=== PATIENT | female | born 1935 | race Caucasian/White ===

== ENCOUNTER 2023-05-01 09:36 | Outpatient (REF) | payer MEDICARE, SELFPAY ==
[2023-05-01 12:59] LABS: Prothrombin Time 22.3 sec (9.0-11.6)
== END 2023-05-01 09:37 ==
LOC: LAB 09:36
PROVIDERS: PCP Family Medicine; Visit Provider Family Medicine
DX: Z79.01 Long term (current) use of anticoagulants (principal)
CPT/HCPCS: 36415; 85610

== ENCOUNTER 2023-05-04 12:28 | Outpatient (REF) | payer MEDICARE, SELFPAY ==
[2023-05-04 13:34] LABS: INR 2.59
== END 2023-05-04 12:29 ==
LOC: LAB 12:28
PROVIDERS: PCP Family Medicine; Visit Provider Family Medicine
DX: Z79.01 Long term (current) use of anticoagulants (principal)
CPT/HCPCS: 36415; 85610

== ENCOUNTER 2023-05-08 00:58 | Outpatient (REF) | payer MEDICARE, SELFPAY ==
[2023-05-08 09:35] LABS: Partial Thromboplastin Time 35.6 sec (22.3-36.2)
[2023-05-08 15:54] LABS: INR 2.25; Prothrombin Time 22.8 sec (9.0-11.6)
== END 2023-05-08 00:59 ==
LOC: LAB 00:58
PROVIDERS: PCP Family Medicine; Visit Provider Family Medicine
DX: Z79.01 Long term (current) use of anticoagulants (principal)
CPT/HCPCS: 36415; 85610; 85730

== ENCOUNTER 2023-05-11 00:52 | Outpatient (REF) | payer MEDICARE, SELFPAY ==
[2023-05-11 10:25] LABS: INR 3.09; Prothrombin Time 30.7 sec (9.0-11.6)
== END 2023-05-11 00:53 ==
LOC: LAB 00:52
PROVIDERS: PCP Family Medicine; Visit Provider Family Medicine
DX: Z79.01 Long term (current) use of anticoagulants (principal)
CPT/HCPCS: 36415; 85610

== ENCOUNTER 2023-05-15 07:33 | Outpatient (REF) | payer MEDICARE, SELFPAY ==
[2023-05-15 09:00] LABS: INR 3.32; Prothrombin Time 32.9 sec (9.0-11.6)
== END 2023-05-15 07:34 ==
LOC: LAB 07:33
PROVIDERS: PCP Family Medicine; Visit Provider Family Medicine
DX: Z79.01 Long term (current) use of anticoagulants (principal)
CPT/HCPCS: 36415; 85610

== ENCOUNTER 2023-05-18 01:22 | Outpatient (REF) | payer MEDICARE, SELFPAY ==
[2023-05-18 08:01] LABS: INR 2.22; Prothrombin Time 22.5 sec (9.0-11.6)
== END 2023-05-18 01:23 ==
LOC: LAB 01:22
PROVIDERS: PCP Family Medicine; Visit Provider Family Medicine
DX: Z79.01 Long term (current) use of anticoagulants (principal)
CPT/HCPCS: 36415; 85610

== ENCOUNTER 2023-05-22 05:12 | Outpatient (REF) | payer MEDICARE, SELFPAY ==
[2023-05-22 10:25] LABS: INR 2.38
== END 2023-05-22 05:13 | disposition home or self-care (01) ==
LOC: LAB 05:12
PROVIDERS: PCP Family Medicine; Visit Provider Family Medicine
DX: Z79.01 Long term (current) use of anticoagulants (principal)
CPT/HCPCS: 36415; 85610

== ENCOUNTER 2023-05-25 02:32 | Outpatient (REF) | payer MEDICARE, SELFPAY ==
[2023-05-25 10:27] LABS: INR 2.43; Prothrombin Time 24.5 sec (9.0-11.6)
== END 2023-05-25 02:33 | disposition home or self-care (01) ==
LOC: LAB 02:32
PROVIDERS: PCP Family Medicine; Visit Provider Family Medicine
DX: Z79.01 Long term (current) use of anticoagulants (principal)
CPT/HCPCS: 36415; 85610

== ENCOUNTER 2023-05-27 03:11 | Outpatient (REF) | payer MEDICARE, SELFPAY ==
[2023-05-27 07:54] LABS: Anion Gap 13.1; BUN Creatinine Ratio 46.3; Calcium 9.1 mg/dL (8.5-10.1); Carbon Dioxide 28.2 mmol/L (21.0-32.0); Chloride 98 mmol/L (98-107); Estimated GFR (African America 58 (>=60); Estimated GFR (Non-African Ame 48 (>=60); Glucose 116 mg/dL (74-106); Potassium 4.3 mmol/L (3.5-5.1); Sodium 135 mmol/L (136-145)
== END 2023-05-27 03:12 | disposition home or self-care (01) ==
LOC: LAB 03:11
PROVIDERS: PCP Family Medicine; Visit Provider Family Medicine
DX: E87.6 Hypokalemia (principal); Z51.81 Encounter for therapeutic drug level monitoring; Z79.899 Other long term (current) drug therapy
CPT/HCPCS: 36415; 80048

== ENCOUNTER 2023-05-29 01:30 | Outpatient (REF) | payer MEDICARE, MEDICAID, SELFPAY ==
[2023-05-29 10:35] LABS: INR 2.78; Prothrombin Time 27.8 sec (9.0-11.6)
== END 2023-05-29 01:31 | disposition home or self-care (01) ==
LOC: LAB 01:30
PROVIDERS: PCP Family Medicine; Visit Provider Family Medicine
DX: Z79.01 Long term (current) use of anticoagulants (principal)
CPT/HCPCS: 36415; 85610

== ENCOUNTER 2023-06-01 01:35 | Outpatient (REF) | payer MEDICARE, MEDICAID, SELFPAY ==
[2023-06-01 07:46] LABS: INR 2.61; Prothrombin Time 26.2 sec (9.0-11.6)
== END 2023-06-01 01:36 | disposition home or self-care (01) ==
LOC: LAB 01:35
PROVIDERS: PCP Family Medicine; Visit Provider Family Medicine
DX: Z79.01 Long term (current) use of anticoagulants (principal)
CPT/HCPCS: 36415; 85610

== ENCOUNTER 2023-06-08 00:18 | Outpatient (REF) | payer MEDICARE, MEDICAID, SELFPAY ==
[2023-06-08 11:24] LABS: Prothrombin Time 30.8 sec (9.0-11.6)
== END 2023-06-08 00:19 | disposition home or self-care (01) ==
LOC: LAB 00:18
PROVIDERS: PCP Family Medicine; Visit Provider Family Medicine
DX: Z51.81 Encounter for therapeutic drug level monitoring (principal); Z79.01 Long term (current) use of anticoagulants
CPT/HCPCS: 36415; 85610

== ENCOUNTER 2023-06-08 13:46 | Outpatient (REF) | payer MEDICARE, MEDICAID, SELFPAY ==
[2023-06-08 14:16] LABS: Basophils Absolute Auto 0.1 10^3/uL (0.0-0.1); Eosinophils Absolute Auto 0.1 10^3/uL (0.0-0.7); Eosinophils Percent Auto 2.5 % (0.9-7.0); Hemoglobin 10.7 g/dL (12.0-16.0); Immature Granulocytes Abs Auto 0.05 10^3/uL (0.00-0.03); Lymphocytes Absolute Auto 1.2 10^3/uL (1.2-3.8); Lymphocytes Percent Auto 22.4 % (20.5-60.0); Mean Corpuscular HGB Conc 29.7 g/dL (29.9-35.2); Mean Corpuscular Hemoglobin 26.5 pg (26.7-34.0); Mean Corpuscular Volume 89.1 fL (81.0-99.0); Mean Platelet Volume 11.6 fL (9.5-13.5); Monocytes Absolute Auto 0.5 10^3/uL (0.3-0.8); Monocytes Percent Auto 8.7 % (1.7-12.0); Neutrophils Absolute Auto 3.3 10^3/uL (1.4-6.5); Neutrophils Percent Auto 64.4 % (43.0-75.0); Platelet Count 194 10^3/uL (150-450); Red Blood Count 4.04 10^6/uL (4.20-5.40); White Blood Count 5.2 10^3/uL (4.0-11.0)
[2023-06-08 14:44] LABS: Alanine Aminotransferase 7 U/L (14-59); Albumin Globulin Ratio 0.8; Albumin Level 3.3 g/dL (3.4-5.0); Alkaline Phosphatase 102 U/L (46-116); Anion Gap 15.6; Aspartate Amino Transferase 19 U/L (15-37); BUN Creatinine Ratio 42.5; Bilirubin Total 0.7 mg/dL (0.2-1.0); Calcium 8.9 mg/dL (8.5-10.1); Carbon Dioxide 27.1 mmol/L (21.0-32.0); Chloride 102 mmol/L (98-107); Estimated GFR (African America 60 (>=60); Estimated GFR (Non-African Ame 49 (>=60); Globulin 4.2 g/dL; Glucose 121 mg/dL (74-106); Potassium 4.7 mmol/L (3.5-5.1); Sodium 140 mmol/L (136-145); Total Protein 7.5 g/dL (6.4-8.2)
== END 2023-06-08 13:47 | disposition home or self-care (01) ==
LOC: LAB 13:46
PROVIDERS: PCP Family Medicine; Visit Provider Family Medicine
DX: Z51.81 Encounter for therapeutic drug level monitoring (principal); Z79.01 Long term (current) use of anticoagulants; R41.82 Altered mental status, unspecified
CPT/HCPCS: 36415; 80053; 85025; 85610

== ENCOUNTER 2023-06-09 12:34 | Outpatient (REF) | payer MEDICARE, MEDICAID, SELFPAY ==
[2023-06-09 12:55] LABS: Bilirubin Urine NEGATIVE (NEGATIVE); Blood Urine NEGATIVE (NEGATIVE); Clarity Urine CLEAR (CLEAR); Color Urine LT. YELLOW (YELLOW); Glucose Urine UA NEGATIVE (NEGATIVE); Ketones Urine NEGATIVE (NEGATIVE); Leukocyte Esterase Urine NEGATIVE (NEGATIVE); Nitrite Urine NEGATIVE (NEGATIVE); Protein Urine NEGATIVE (NEG/TRACE); Specific Gravity Urine 1.015 (1.005-1.025); Urobilinogen Urine 0.2 EU/dL (0.2-1.0)
[2023-06-09 13:03] LABS: Bacteria Urine NONE SEEN #/HPF (NONE SEEN); Cast Seen? NONE SEEN #/LPF (NONE SEEN); Crystals Seen? None Seen #/HPF (None Seen); Mucus Urine NONE SEEN (NONE SEEN); RBC Urine 0-2 #/HPF (0-2); Squamous Epithelial Cell Urine RARE #/LPF (NONE/RARE); WBC Urine NONE SEEN #/HPF (NONE SEEN)
== END 2023-06-09 12:35 | disposition home or self-care (01) ==
LOC: LAB 12:34
PROVIDERS: PCP Family Medicine; Visit Provider Family Medicine
DX: R41.82 Altered mental status, unspecified (principal)
CPT/HCPCS: 81001

== ENCOUNTER 2023-06-10 06:51 | Outpatient (REF) | payer MEDICARE, MEDICAID, SELFPAY ==
[2023-06-10 08:49] LABS: Basophils Absolute Auto 0.1 10^3/uL (0.0-0.1); Eosinophils Absolute Auto 0.1 10^3/uL (0.0-0.7); Eosinophils Percent Auto 2.1 % (0.9-7.0); Hematocrit 34.6 % (36.0-48.0); Hemoglobin 10.6 g/dL (12.0-16.0); Immature Granulocytes Abs Auto 0.05 10^3/uL (0.00-0.03); Immature Granulocytes Pct Auto 0.9 % (0.0-0.5); Lymphocytes Absolute Auto 1.7 10^3/uL (1.2-3.8); Lymphocytes Percent Auto 30.1 % (20.5-60.0); Mean Corpuscular HGB Conc 30.6 g/dL (29.9-35.2); Mean Corpuscular Hemoglobin 26.6 pg (26.7-34.0); Mean Corpuscular Volume 86.7 fL (81.0-99.0); Mean Platelet Volume 11.2 fL (9.5-13.5); Monocytes Absolute Auto 0.5 10^3/uL (0.3-0.8); Monocytes Percent Auto 8.4 % (1.7-12.0); Neutrophils Absolute Auto 3.3 10^3/uL (1.4-6.5); Neutrophils Percent Auto 57.5 % (43.0-75.0); Platelet Count 171 10^3/uL (150-450); Red Blood Count 3.99 10^6/uL (4.20-5.40); White Blood Count 5.7 10^3/uL (4.0-11.0)
[2023-06-10 08:53] LABS: Alanine Aminotransferase <6 U/L (14-59); Albumin Globulin Ratio 0.8; Albumin Level 3.2 g/dL (3.4-5.0); Alkaline Phosphatase 111 U/L (46-116); Anion Gap 16.5; Aspartate Amino Transferase 17 U/L (15-37); BUN Creatinine Ratio 42.2; Calcium 9.3 mg/dL (8.5-10.1); Carbon Dioxide 25.8 mmol/L (21.0-32.0); Chloride 101 mmol/L (98-107); Estimated GFR (African America 58 (>=60); Estimated GFR (Non-African Ame 48 (>=60); Glucose 109 mg/dL (74-106); Potassium 4.3 mmol/L (3.5-5.1); Sodium 139 mmol/L (136-145); Total Protein 7.2 g/dL (6.4-8.2)
[2023-06-10 08:59] LABS: INR 2.92; Prothrombin Time 29.1 sec (9.0-11.6)
== END 2023-06-10 06:52 | disposition home or self-care (01) ==
LOC: LAB 06:51
PROVIDERS: PCP Family Medicine; Visit Provider Family Medicine
DX: R41.82 Altered mental status, unspecified (principal); I48.91 Unspecified atrial fibrillation; Z79.01 Long term (current) use of anticoagulants
CPT/HCPCS: 36415; 80053; 85025; 85610

== ENCOUNTER 2023-06-15 02:08 | Outpatient (REF) | payer MEDICARE, MEDICAID, SELFPAY ==
[2023-06-15 07:56] LABS: INR 3.77; Prothrombin Time 37.1 sec (9.0-11.6)
== END 2023-06-15 02:09 | disposition home or self-care (01) ==
LOC: LAB 02:08
PROVIDERS: PCP Family Medicine; Visit Provider Family Medicine
DX: Z79.01 Long term (current) use of anticoagulants (principal); Z51.81 Encounter for therapeutic drug level monitoring
CPT/HCPCS: 36415; 85610

== ENCOUNTER 2023-06-17 07:49 | Outpatient (REF) | payer MEDICARE, MEDICAID, SELFPAY ==
[2023-06-17 10:07] LABS: INR 4.62; Prothrombin Time 44.9 sec (9.0-11.6)
== END 2023-06-17 07:50 | disposition home or self-care (01) ==
LOC: LAB 07:49
PROVIDERS: PCP Family Medicine; Visit Provider Family Medicine
DX: Z51.81 Encounter for therapeutic drug level monitoring (principal); Z79.01 Long term (current) use of anticoagulants
CPT/HCPCS: 36415; 85610

== ENCOUNTER 2023-06-19 09:01 | Outpatient (REF) | payer MEDICARE, MEDICAID, SELFPAY ==
[2023-06-19 09:37] LABS: INR 2.29; Prothrombin Time 23.2 sec (9.0-11.6)
== END 2023-06-19 09:02 | disposition home or self-care (01) ==
LOC: LAB 09:01
PROVIDERS: PCP Family Medicine; Visit Provider Family Medicine
DX: R79.1 Abnormal coagulation profile (principal)
CPT/HCPCS: 36415; 85610

== ENCOUNTER 2023-06-22 02:21 | Outpatient (REF) | payer MEDICARE, MEDICAID, SELFPAY ==
[2023-06-22 11:22] LABS: INR 2.35; Prothrombin Time 23.7 sec (9.0-11.6)
== END 2023-06-22 02:22 | disposition home or self-care (01) ==
LOC: LAB 02:21
PROVIDERS: PCP Family Medicine; Visit Provider Family Medicine
DX: Z79.01 Long term (current) use of anticoagulants (principal)
CPT/HCPCS: 36415; 85610

== ENCOUNTER 2023-06-23 08:48 | Outpatient (REF) | payer MEDICARE, MEDICAID, SELFPAY ==
[2023-06-23 10:34] LABS: INR 2.15; Prothrombin Time 21.8 sec (9.0-11.6)
== END 2023-06-23 08:49 | disposition home or self-care (01) ==
LOC: LAB 08:48
PROVIDERS: PCP Family Medicine; Visit Provider Family Medicine
DX: Z51.81 Encounter for therapeutic drug level monitoring (principal)
CPT/HCPCS: 36415; 85610

== ENCOUNTER 2023-06-29 01:22 | Outpatient (REF) | payer MEDICARE, MEDICAID, SELFPAY ==
[2023-06-29 09:13] LABS: Prothrombin Time 61.4 sec (9.0-11.6)
[2023-06-29 09:14] LABS: INR 6.44
== END 2023-06-29 01:23 | disposition home or self-care (01) ==
LOC: LAB 01:22
PROVIDERS: PCP Family Medicine; Visit Provider Family Medicine
DX: Z51.81 Encounter for therapeutic drug level monitoring (principal); Z79.01 Long term (current) use of anticoagulants
CPT/HCPCS: 36415; 85610

== ENCOUNTER 2023-07-01 02:28 | Outpatient (REF) | payer MEDICARE, MEDICAID, SELFPAY ==
[2023-07-01 08:21] LABS: INR 1.48; Prothrombin Time 15.3 sec (9.0-11.6)
== END 2023-07-01 02:29 | disposition home or self-care (01) ==
LOC: LAB 02:28
PROVIDERS: PCP Family Medicine; Visit Provider Family Medicine
DX: Z79.01 Long term (current) use of anticoagulants (principal)
CPT/HCPCS: 36415; 85610

== ENCOUNTER 2023-07-06 02:22 | Outpatient (REF) | payer MEDICARE, MEDICAID, SELFPAY ==
[2023-07-06 10:09] LABS: INR 3.01
== END 2023-07-06 02:23 | disposition home or self-care (01) ==
LOC: LAB 02:22
PROVIDERS: PCP Family Medicine; Visit Provider Family Medicine
DX: Z79.01 Long term (current) use of anticoagulants (principal)
CPT/HCPCS: 36415; 85610

== ENCOUNTER 2023-07-12 17:47 | Inpatient (IN) | payer MEDICARE, MEDICAID, SELFPAY ==
[2023-07-12 17:49] VITALS: BP 94/57; PULSE 68; RESP 24; TEMP 36.8; O2SAT 88; BMI 43.9
--- NOTE | 2023-07-12 17:54 | ECG_ITS ---
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
--- NOTE | 2023-07-12 17:54 | XR_ITS ---
[address] [address] Patient Name: ROB WILKINS MRN: [id number] date: 1935 Sex: F Assigned Patient Location: ED.MAIN Current Patient Location: ER Accession/Order Number: [id number] Exam Date: 07/12/2023 18:15 Report Date: 07/12/2023 18:26 At the request of: OFE ESCALANTE Procedure: XR chest 1V EXAM: XR chest 1V HISTORY: shortness of breath COMPARISON: None. TECHNIQUE: Portable chest FINDINGS: IMPRESSION: Poor inspiratory effort. No focal parenchymal consolidation or infiltrate. Pleural effusions cannot be excluded. Thorax. The heart is not discretely enlarged. Left-sided cardiac pacemaker. Electronically authenticated by: TRISTAN GATICA Date: 07/12/2023 18:26
[2023-07-12] MEDS: FUROSEMIDE 20 MG/2 ML VIAL 40 MG IVP (18:18)
--- NOTE | 2023-07-12 18:23 | ED.SOB1 ---
HPI - SOB/Dyspnea General Chief Complaint: Shortness of Breath/Dyspnea Stated Complaint: SOB Time Seen by Provider: 07/12/23 17:50 Source: caregiver Mode of arrival: ambulance Limitations: no limitations History of Present Illness HPI Narrative: patient sent from [facility] for evaluation after developing shortness of breath. They reported that her room air pulse ox was only in the 80s. EMS brought her to our ED for evaluation. Pulse ox was 88% in our ED. Patient has dementia and her history is therefore limited. She has marked LE edema. Patient's family arrived and they told me that if the patient has to be admitted they want her transferred to [facility] since her cardiologists - Dr Reardon & Allyssa - go there and it is closer to the family's home. Related Data Allergies Allergy/AdvReac Type Severity Reaction Status Date / Time No Known Drug Allergies Allergy Verified 07/12/23 17:55 Exam Narrative Exam Narrative: Nurses notes and vital signs reviewed and patient IS hypoxic. afebrile General: No apparent distress. Skin: Warm, dry, no pallor noted. No rash. Head: Normocephalic, atraumatic. Neck: Supple, non-tender. Eye: Pupils are equal, round and EOMI. No scleral icterus. Cardiovascular: Regular Rate and Rhythm without murmur, gallop or rub. Respiratory: No accessory muscle use or respiratory distress. Lungs with bibasilar rales Back: No midline thoracic or lumbar vertebral tenderness. Musculoskeletal: No calf or popliteal tenderness. 2+ pitting bilateral lower extremity edema/swelling GI: Abdomen is soft, non-distended. Normal bowel sounds. No tenderness to palpation. No rebound, guarding, or rigidity noted. Neurological: Awake and alert. Oriented to self. Refuses to answer some questions. No truncal ataxia. Moves all extremities. Sensation intact. Psychiatric: Cooperative and interactive. Normal mood and affect. Constitutional Vital Signs, click to edit/add: Last Vital Signs Temp 98.2 F 07/12/23 17:49 Pulse 68 07/12/23 17:49 Resp 24 07/12/23 17:49 BP 94/57 07/12/23 17:49 Pulse Ox 88 L 07/12/23 17:49 O2 Del Method Room Air 07/12/23 17:49 Course Vital Signs Vital signs: Vital Signs Temperature 98.2 F 07/12/23 17:49 Pulse Rate 68 07/12/23 17:49 Respiratory Rate 24 07/12/23 17:49 Blood Pressure 94/57 07/12/23 17:49 Pulse Oximetry 88 L 07/12/23 17:49 Oxygen Delivery Method Room Air 07/12/23 17:49 Temperature 98.2 F 07/12/23 17:49 Pulse Rate 68 07/12/23 17:49 Respiratory Rate 24 07/12/23 17:49 Blood Pressure 94/57 07/12/23 17:49 Pulse Oximetry 88 L 07/12/23 17:49 Oxygen Delivery Method Room Air 07/12/23 17:49 MDM - SOB/Dyspnea MDM Narrative Medical decision making narrative: Patient was placed on supervisor webbing and EKG obtained. oxygen was applied at 4 L/m nasal cannula to this patient. Blood drawn and sent for evaluation. chest x-ray was obtained. The patient ordered to receive IV Lasix as she appears to be having an acute congestive heart failure exacerbation. ABG ordered to be obtained. EKG shows paced rhythm. Exam, CXR and BNP consistent with CHF exacerbation. Call placed to [facility] to discuss transfer and they are on bed restriction and not accepting outside transfers. Family informed and I offered to send the patient to [facility] where Dr Reardon also rounds. They are talking with other family members by phone to decide where to send the patient. They decided to have the patient stay at [facility]. Call placed to Dr Cruz - telehospitalist - to discuss admission. patient will be inpatient admission to Dr Quiroz's service. Lab Data Attestation: I reviewed the patient's lab results. Labs: Lab Results 07/12/23 Range/Units 18:10 WBC 5.2 (4.0-11.0) 10^3/uL RBC 4.13 L (4.20-5.40) 10^6/uL Hgb 10.7 L (12.0-16.0) g/dL Hct 35.3 L (36.0-48.0) % MCV 85.5 (81.0-99.0) fL MCH 25.9 L (26.7-34.0) pg MCHC 30.3 (29.9-35.2) g/dL RDW 20.6 H (11.0-15.0) % Plt Count 194 (150-450) 10^3/uL MPV 10.9 (9.5-13.5) fL Neut % (Auto) 71.2 (43.0-75.0) % Lymph % (Auto) 16.1 L (20.5-60.0) % Rains % (Auto) 9.7 (1.7-12.0) % Eos % (Auto) 1.2 (0.9-7.0) % Baso % (Auto) 1.0 (0.2-2.0) % Neut # (Auto) 3.7 (1.4-6.5) 10^3/uL Lymph # (Auto) 0.8 L (1.2-3.8) 10^3/uL Rains # (Auto) 0.5 (0.3-0.8) 10^3/uL Eos # (Auto) 0.1 (0.0-0.7) 10^3/uL Baso # (Auto) 0.1 (0.0-0.1) 10^3/uL Abs Immat Gran (auto) 0.04 H (0.00-0.03) 10^3/uL Imm/Tot Granulo (auto) 0.8 H (0.0-0.5) % PT 40.7 H* (9.0-11.6) sec INR 4.16 H* APTT 44.1 H* (22.3-36.2) sec Sodium 136 (136-145) mmol/L Potassium 4.9 (3.5-5.1) mmol/L Chloride 100 (98-107) mmol/L Carbon Dioxide 28.8 (21.0-32.0) mmol/L Anion Gap 12.1 BUN 53.0 H (7.0-18.0) mg/dL Creatinine 1.56 H (0.55-1.02) mg/dL Est GFR ( Amer) 38 L (>=60) Est GFR (Non-Af Amer) 31 L (>=60) BUN/Creatinine Ratio 34.0 Glucose 132 H (74-106) mg/dL Lactate 4.0 H* (0.4-2.0) mmol/L Calcium 8.8 (8.5-10.1) mg/dL Troponin I High Sens 26.2 (4.0-51.3) pg/mL NT-Pro-B Natriuret Pep 56341.0 H* (<=1800.0) pg/mL Imaging Data Chest x-ray: Radiologist's impression: Patient Name: ROB WILKINS MRN: [id number] date: 1935 Sex: F Assigned Patient Location: ED.MAIN Current Patient Location: ER Accession/Order Number: [id number] Exam Date: 07/12/2023 18:15 Report Date: 07/12/2023 18:26 At the request of: OFE ESCALANTE Procedure: XR chest 1V EXAM: XR chest 1V HISTORY: shortness of breath COMPARISON: None. TECHNIQUE: Portable chest FINDINGS: IMPRESSION: Poor inspiratory effort. No focal parenchymal consolidation or infiltrate. Pleural effusions cannot be excluded. Thorax. The heart is not discretely enlarged. Left-sided cardiac pacemaker. Electronically authenticated by: TRISTAN GATICA Date: 07/12/2023 18:26 ECG Data Interpretation: EKG interpretation: Emergency Department physician interpretation. electronic pacer Discharge Plan Discharge Chief Complaint: Shortness of Breath/Dyspnea Clinical Impression: Congestive heart failure Patient Disposition: Admitted As Inpatient Time of Disposition Decision: 19:10 Additional Instructions: Dr Quiroz's service, Dr Sister krystian villalta for orders
[2023-07-12 18:25] LABS: Basophils Absolute Auto 0.1 10^3/uL (0.0-0.1); Eosinophils Absolute Auto 0.1 10^3/uL (0.0-0.7); Eosinophils Percent Auto 1.2 % (0.9-7.0); Hematocrit 35.3 % (36.0-48.0); Hemoglobin 10.7 g/dL (12.0-16.0); Immature Granulocytes Abs Auto 0.04 10^3/uL (0.00-0.03); Immature Granulocytes Pct Auto 0.8 % (0.0-0.5); Lymphocytes Absolute Auto 0.8 10^3/uL (1.2-3.8); Lymphocytes Percent Auto 16.1 % (20.5-60.0); Mean Corpuscular HGB Conc 30.3 g/dL (29.9-35.2); Mean Corpuscular Hemoglobin 25.9 pg (26.7-34.0); Mean Corpuscular Volume 85.5 fL (81.0-99.0); Mean Platelet Volume 10.9 fL (9.5-13.5); Monocytes Absolute Auto 0.5 10^3/uL (0.3-0.8); Monocytes Percent Auto 9.7 % (1.7-12.0); Neutrophils Absolute Auto 3.7 10^3/uL (1.4-6.5); Neutrophils Percent Auto 71.2 % (43.0-75.0); Platelet Count 194 10^3/uL (150-450); Red Blood Count 4.13 10^6/uL (4.20-5.40); Red Cell Distribution Width 20.6 % (11.0-15.0); White Blood Count 5.2 10^3/uL (4.0-11.0)
[2023-07-12 18:47] LABS: Anion Gap 12.1; Calcium 8.8 mg/dL (8.5-10.1); Carbon Dioxide 28.8 mmol/L (21.0-32.0); Chloride 100 mmol/L (98-107); Estimated GFR (African America 38 (>=60); Estimated GFR (Non-African Ame 31 (>=60); Glucose 132 mg/dL (74-106); Potassium 4.9 mmol/L (3.5-5.1); Sodium 136 mmol/L (136-145); Troponin I High Sensitivity 26.2 pg/mL (4.0-51.3)
[2023-07-12 18:49] LABS: INR 4.16; Partial Thromboplastin Time 44.1 sec (22.3-36.2); Prothrombin Time 40.7 sec (9.0-11.6)
[2023-07-12 19:42] LABS: ABG PCO2 41.3 mmHg (35.0-45.0); Base Excess ABG 2.7 mmol/L (-2.0-2.0); HCO3 ABG 27.1 mmol/L (22.0-26.0); pH ABG 7.425 (7.350-7.450)
[2023-07-12 19:43] LABS: Liters per Minute 3.5; O2 Mode NASAL CANULA
[2023-07-12 19:44] LABS: Puncture Site R RADIAL
[2023-07-12 20:23] VITALS: BP 148/92; PULSE 67; RESP 18; O2SAT 98
[2023-07-12 21:29] LABS: Lactate/Lactic Acid 3.5 mmol/L (0.4-2.0)
[2023-07-12 21:51] VITALS: BP 106/70; BP 148/92; PULSE 74; RESP 24; TEMP 36.5; O2SAT 93; BMI 42.3
[2023-07-12 22:00] VITALS: BP 106/70; PULSE 74; RESP 24; TEMP 36.5; O2SAT 93
--- NOTE | 2023-07-12 23:57 | P.PN_ITS ---
Progress Note: Subjective Subjective Interval history: CC: Shortness of breath HPI: This is 88 years old female who presents with above complaints. The history is limited. Apparently patient been gradually gaining weight and getting more short of breath. According to the records patient gained about 15 pounds. No reports of chest pain. On presentation to emergency room patient found to HAVE bilateral lower extremity edema, bilateral lateral rails and radiological findings of pulmonary edema. Patient found to be hypoxic. Patient has been responding to IV Lasix. Patient is confused. Family at bedside. Exam Narrative Exam Narrative: Physical Exam: Not in distress, pleasant, confused, cooperative, Head - atraumatic, eyes - pupils equal, round, reactive to light, extra ocular movement intact, MMM Neck - supple, thyroid not enlarged, LN not palpated JVD +8 cm above clavicle Lungs -coarse breath sounds, bibasilar Rales CVS - heart sounds S1, S2, no additional murmurs gallop, regular rate and rhythm Gastrointestinal?abdomen is soft, non-tender, non-distended, no organomegaly, positive bowel sounds Extremities no clubbing, cyanosis, 4+ pitting bilateral lower extremity edema Neurological?cranial nerve II?XII grossly intact, no meningeal signs, no cerebellar signs, no sensory deficit Musculoskeletal - DJD related changes in multiple joints, no effusions, ROM preserved Dermatological - the skin dry, warm, no rashes Psychiatric?patient is confused Constitutional Vital Signs, click to edit/add: Last Vital Signs Temp 97.7 F 07/12/23 21:51 Pulse 74 07/12/23 21:51 Resp 24 07/12/23 21:51 BP 106/70 07/12/23 21:51 Pulse Ox 93 L 07/12/23 21:51 O2 Del Method Room Air 07/12/23 21:51 O2 Flow Rate 3 07/12/23 20:23 Progress Note: Objective Labs Labs: Short CBC 07/12/23 Range/Units 18:10 WBC 5.2 (4.0-11.0) 10^3/uL Hgb 10.7 L (12.0-16.0) g/dL Hct 35.3 L (36.0-48.0) % Plt Count 194 (150-450) 10^3/uL BMP 07/12/23 18:10 Sodium 136 Potassium 4.9 Chloride 100 Carbon Dioxide 28.8 BUN 53.0 H Creatinine 1.56 H Glucose 132 H Calcium 8.8 Progress Note: A&P Assessment and Plan (1) Congestive heart failure: Assessment and Plan: CHF exacerbation, combined systolic and diastolic with impending Pulmonary edema -patient's condition is guarded and requires inpatient admission for close monitoring and medical management - admit to telemetry floor - heart failure protocol initiated with strict I/Os and daily weight - IV Lasix - O2 supplementation, use BiPAP if needed to - low threshold to transfer to ICU if no improvement - r/o acute CAD by serial Archana - will order an ECHO to ascertain an EF%, presence of wall motion abnormalities, valvular structures 2. DM- continue with ADA diet - hold off oral hypoglycemic agents while in the hospital to avoid hypoglycemic episodes - frequent accuchecks (TID AC + HS) - will provide coverage with long acting insulin as well as short acting insulin with meals - adjust as needed - hypoglycemia protocol in place 3. Dementia?patient is at risk for delirium. Avoid use of psychotropic medications. Restart home dose of Seroquel and Depakote. 4. Parkinson's disease?resume home regiment 5. Hypothyroidism?continue home dose of supplemental levothyroxine 6. Chronic anticoagulation?continue with home dose of Coumadin. Keep INR between 2?3. As the provider for the telehealth service, I attest that I introduced myself to the patient, provided my credentials, disclosed by location and determined that based on a review of the patient's chart and discussion with members of the patient's treatment team, telemedicine via real-time, 2 way, and interactive audio and video platform is an appropriate and effective means of providing the service. ?The patient and I mutually agree this visit is appropriate for telemedicine. ?The virtual encounter was taken place from? [place], [place]. ?The encounter took approximately 35 minutes. ?The nurse was present during the entire time and I was able to move the stethoscope in appropriate directions. ?The patient was evaluated at the Hospital ? Portions of this note may be dictated using [employer] voice recognition software. Variances in spelling and vocabulary are possible and unintentional. Not all errors may be caught and/or corrected. Please notify the author if any discrepancies are noted and/or if the meaning of any statement is unclear.? ? Patient verbally consented for treatment via video visit with patient currently located at [facility] and provider located in [place]. Telemedicine Attestation Telemedicine Attestation I conducted this encounter from [[place]] via secure live, [id number] video conference with the patient, located at [facility] with [CHF]. Prior to the interview, the risks and benefits of telemedicine were discussed with the patient and verbal consent was obtained.
[2023-07-13] VITALS (9 sets, daily range): BP systolic 103–135; BP diastolic 67–82; PULSE 62–77; RESP 18–20; TEMP 36.6–36.7; O2SAT 92–99; BMI 42.3
[2023-07-13] MEDS: QUETIAPINE FUMARATE 25 MG TABLET PO ×2 (01:15→21:17)
[2023-07-13 04:09] LABS: Basophils Percent Auto 0.5 % (0.2-2.0); Eosinophils Absolute Auto 0.1 10^3/uL (0.0-0.7); Eosinophils Percent Auto 1.8 % (0.9-7.0); Hematocrit 32.4 % (36.0-48.0); Hemoglobin 9.8 g/dL (12.0-16.0); Immature Granulocytes Abs Auto 0.02 10^3/uL (0.00-0.03); Immature Granulocytes Pct Auto 0.4 % (0.0-0.5); Lymphocytes Absolute Auto 1.1 10^3/uL (1.2-3.8); Lymphocytes Percent Auto 18.4 % (20.5-60.0); Mean Corpuscular HGB Conc 30.2 g/dL (29.9-35.2); Mean Corpuscular Hemoglobin 25.5 pg (26.7-34.0); Mean Corpuscular Volume 84.2 fL (81.0-99.0); Mean Platelet Volume 11.3 fL (9.5-13.5); Monocytes Absolute Auto 0.6 10^3/uL (0.3-0.8); Neutrophils Absolute Auto 3.9 10^3/uL (1.4-6.5); Neutrophils Percent Auto 68.9 % (43.0-75.0); Platelet Count 173 10^3/uL (150-450); Red Blood Count 3.85 10^6/uL (4.20-5.40); Red Cell Distribution Width 20.4 % (11.0-15.0); White Blood Count 5.7 10^3/uL (4.0-11.0)
--- NOTE | 2023-07-13 04:13 | RESP.RT ---
Decreased 02 down to 2L
[2023-07-13 04:20] LABS: Lactate/Lactic Acid 1.9 mmol/L (0.4-2.0)
[2023-07-13 04:26] LABS: Partial Thromboplastin Time 46.3 sec (22.3-36.2)
[2023-07-13 04:27] LABS: Alanine Aminotransferase 9 U/L (14-59); Albumin Globulin Ratio 0.7; Albumin Level 2.8 g/dL (3.4-5.0); Alkaline Phosphatase 93 U/L (46-116); Anion Gap 15.2; Aspartate Amino Transferase 14 U/L (15-37); BUN Creatinine Ratio 35.3; Bilirubin Total 0.9 mg/dL (0.2-1.0); Calcium 8.5 mg/dL (8.5-10.1); Carbon Dioxide 26.6 mmol/L (21.0-32.0); Chloride 101 mmol/L (98-107); Estimated GFR (African America 38 (>=60); Estimated GFR (Non-African Ame 31 (>=60); Globulin 3.8 g/dL; Glucose 115 mg/dL (74-106); Phosphorus 4.7 mg/dL (2.6-4.7); Potassium 4.8 mmol/L (3.5-5.1); Sodium 138 mmol/L (136-145); Total Protein 6.6 g/dL (6.4-8.2)
[2023-07-13 04:40] LABS: INR 4.27; Prothrombin Time 41.7 sec (9.0-11.6)
[2023-07-13] MEDS: MIDODRINE HCL 5 MG TABLET 10 MG PO ×3 (06:18→21:16)
[2023-07-13] MEDS: FUROSEMIDE 40 MG/4 ML VIAL IVP ×2 (06:25→18:22)
[2023-07-13] MEDS: LEVOTHYROXINE SODIUM 25 MCG TABLET 50 MCG PO (06:25)
[2023-07-13 08:51] LABS: Glucometer 107 mg/dL (74-106)
--- NOTE | 2023-07-13 09:52 | SWNOTE1 ---
Pt is from [facility] fdc.
[2023-07-13] MEDS: OMEPRAZOLE 20 MG CAPSULE.DR PO (09:55)
[2023-07-13] MEDS: DIVALPROEX SODIUM 250 MG TABLET.DR PO ×2 (09:55→21:17)
[2023-07-13] MEDS: METOLAZONE 2.5 MG TABLET 5 MG PO (09:55)
[2023-07-13] MEDS: POTASSIUM CHLORIDE 10 MEQ ER TABLET 20 MEQ PO (09:55)
--- NOTE | 2023-07-13 10:57 | PM.HP ---
H&P: HPI History of Present Illness Chief complaint: SOB, CHF Narrative: 88 y o female, currently residing at [facility] was brought in last night for SOB, worsening LE edema and worsening mental status. Patient has dementia at baseline with fluctuation in mental status and is confused at baseline. She also has hx of CHF and was recently admitted at OSH in March. Most of hx was obtained from patient's daughter who said that patient was noted to have increased SOB, with wheezing and was given steroids and increased dose of lasix for it at senior living. There has been a gradual decline in her clinical status for past 2 weeks with worsening SOB, edema along with her behavior overall where she is now withdrawn, speaks/communicates little if at all and does not seem interested in her surroundings. Her w/u in ED was cw anasarca, volume overload due to acute on chronic systolic HF and she was admitted for CH exacerbation Review of Systems ROS Narrative Limited as patient was not co operative, and did not seem interested. She was also confused. [facility] Medical History (Updated 07/13/23 @ 11:21 by Shaikh Linda MD) Surgical History (Updated 07/13/23 @ 11:11 by Shaikh Linda MD) Family History Father Family history of cancer Mother Family history of cancer Other Family history of diabetes mellitus Family history of hypertension Social History (Updated 07/13/23 @ 11:05 by Shaikh Linda MD) Within the past year, how often did you have a drink containing alcohol: never Within the past year, how often did you have six or more drinks on one occasion: never Score interpretation: A score less than 3 is consistent with normal alcohol consumption. Smoking status: Never smoker Non-prescribed substance use: denies use Meds Home Medications and Allergies Home Medications Medication Instructions Recorded Confirmed Type albuterol sulfate 2.5 mg/3 mL mg 07/12/23 History (0.083 %) solution for nebulization atorvastatin 40 mg tablet 40 mg PO BEDTIME 07/12/23 07/12/23 History carbidopa 10 mg-levodopa 100 mg 1 tab PO TID 07/12/23 07/12/23 History tablet divalproex 250 mg tablet,delayed 250 mg PO Q12H 07/12/23 07/12/23 History release furosemide 40 mg tablet 40 mg PO Q12H 07/12/23 07/12/23 History latanoprost 0.005 % eye drops 1 drp ophthalmic (eye) BEDTIME 07/12/23 07/12/23 History levothyroxine 50 mcg tablet 50 mcg PO DAILY 07/12/23 07/12/23 History metformin 500 mg tablet 500 mg PO BID 07/12/23 07/12/23 History metolazone 5 mg tablet 5 mg PO DAILY 07/12/23 07/12/23 History midodrine 10 mg tablet 10 mg PO TID 07/12/23 07/12/23 History omeprazole 20 mg capsule,delayed 20 mg PO DAILY 07/12/23 07/12/23 History release potassium chloride 20 mEq/15 mL 20 meq PO DAILY 07/12/23 07/12/23 History oral liquid quetiapine 25 mg tablet 25 mg PO BEDTIME 07/12/23 07/12/23 History warfarin 2 mg tablet 2 mg PO DAILY 07/12/23 07/12/23 History acetaminophen 325 mg capsule 650 mg PO Q6H PRN fever or pain 07/13/23 07/13/23 History albuterol sulfate 90 mcg/actuation inhalation 07/13/23 History aerosol inhaler magnesium hydroxide 400 mg/5 mL 30 ml PO DAILY PRN constipation 07/13/23 07/13/23 History oral suspension (Milk of Magnesia) nystatin 100,000 unit/gram topical 1 applic topical .Q12 excoriation 07/13/23 07/13/23 History cream sodium chloride 1,000 mg soluble 2,000 mg PO .Q6 PRN electrolyte 07/13/23 07/13/23 History tablet replenishment Allergies Allergy/AdvReac Type Severity Reaction Status Date / Time Penicillins Allergy Severe Verified 07/13/23 00:47 Exam Constitutional Vital Signs, click to edit/add: Last Vital Signs Temp 97.8 F 07/13/23 09:01 Pulse 64 07/13/23 09:01 Resp 18 07/13/23 09:01 BP 135/82 07/13/23 09:01 Pulse Ox 92 L 07/13/23 09:01 O2 Del Method Room Air 07/13/23 09:01 O2 Flow Rate 2 07/13/23 06:00 Documenting provider has reviewed patient's vital signs: yes Common normals: no apparent distress General appearance: comfortable HENMT Common normals: normocephalic and head/scalp atraumatic Head and scalp: normocephalic and atraumatic Eye Common normals: conjunctivae normal and no scleral icterus Conjunctiva: conjunctiva(e) normal Respiratory Common normals: normal respiratory effort Auscultation: crackles and diminished lung sounds Cardio Common normals: regular rate Rate: regular rate Heart sounds: S1 normal, S2 normal, click and murmur (aortic) systolic GI Common normals: Normal to inspection, nondistended, normoactive bowel sounds present, soft to palpation, non-tender and no hepatosplenomegaly Palpation: soft and no hepatosplenomegaly Other: abdominal wall edema Extremity General: edema Neuro Simone Coma Scale: document GCS findings [place] coma scale eye opening: Spontaneous Simone coma scale verbal response: Confused Simone coma scale motor response: Localising [place] coma scale total score: 13 Common normals: moves all extremities Sensorium/orientation: somnolent Speech: abnormal speech Psych Appearance: grossly normal Attitude: withdrawn and uncooperative Speech: incoherent Results Labs Labs: Short CBC 07/12/23 07/12/23 Range/Units 03:53 18:10 WBC 5.7 5.2 (4.0-11.0) 10^3/uL Hgb 9.8 L 10.7 L (12.0-16.0) g/dL Hct 32.4 L 35.3 L (36.0-48.0) % Plt Count 173 194 (150-450) 10^3/uL BMP 07/12/23 07/12/23 03:53 18:10 Sodium 138 136 Potassium 4.8 4.9 Chloride 101 100 Carbon Dioxide 26.6 28.8 BUN 55.0 H 53.0 H Creatinine 1.56 H 1.56 H Glucose 115 H 132 H Calcium 8.5 8.8 Liver Function 07/12/23 Range/Units 03:53 Total Bilirubin 0.9 (0.2-1.0) mg/dL AST 14 L (15-37) U/L ALT 9 L (14-59) U/L Alkaline Phosphatase 93 (46-116) U/L Albumin 2.8 L (3.4-5.0) g/dL ABG ABG results: 07/12/23 19:35 ABG pH 7.425 ABG pCO2 41.3 ABG pO2 132.0 H ABG HCO3 27.1 H ABG O2 Saturation 100.0 ABG Base Excess 2.7 H Assessment and Plan Assessment and Plan (1) Acute respiratory failure with hypoxia: Assessment and Plan: Hypoxic on presentation - required O2 supplementation via NC. Improved today. Sats above 90% on RA Monitor resp status closely. (2) Acute on chronic diastolic (congestive) heart failure: Assessment and Plan: Acute on chronic diastolic HF, failed outpatient therapy and p/w with worsening volume overload and hypoxia. On IV lasix 40 q12. Also on Metolazone. 2D ECHO at OSH 04/21. Will not repeat as its too soon and patient is on CC measures. Monitor I/O, daily weights. Will need continued IV diuresis to help improve resp status. (3) SUE (acute kidney injury): Assessment and Plan: Cardio renal due to CHF. C/w IV diuresis. Monitor I/O, daily weight. (4) Delirium: Assessment and Plan: Delirium superimposed on dementia. Withdrawn, quiet, and not communicating. Mental status waxes and wanes. Monitor. (5) Lactic acid acidosis: Assessment and Plan: Improved. Due to hypoxia and CHF (6) Afib: Assessment and Plan: On coumadin for AC. (7) Type 2 diabetes mellitus: Assessment and Plan: SSI while in patient. on metformin as outpatient. Qualifiers: Diabetes mellitus termite exterminator helper insulin use: without termite exterminator helper use Diabetes mellitus complication status: without complication Qualified Code(s): E11.9 - Type 2 diabetes mellitus without complications (8) Parkinson disease: Assessment and Plan: Parkinson disease with dementia. (9) Dementia: Assessment and Plan: Dementia with Parkinson, along with behavioral disturbance. Mental status waxes and wanes and usually worse when she is in the hospital C/w home meds. Fall precautions. 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 Hold coumadin (11) Severe tricuspid regurgitation: Assessment and Plan: Severe TR, with Pulm HTN along with mod stenosis of replaced AR valve. Normal EF. Follows outpatient with [facility]. Medical management due to her age, and comorbidities. (12) Secondary pulmonary hypertension: Assessment and Plan: due to severe TR, obesity, Mod-severe . Medical management. (13) S/P TAVR (transcatheter aortic valve replacement): Assessment and Plan: Mod- severe with perivalvular leak. Medical management. Follows Cardiology as outpatient. (14) Hypothyroid: Assessment and Plan: on levothyroxine. (15) Ambulatory dysfunction: Assessment and Plan: Ambulatory dysfunction. Bed bound. [facility]DC uses lesly lift. PT/OT eval. Poor functional status
[2023-07-13 11:04] LABS: Glucometer 123 mg/dL (74-106)
--- NOTE | 2023-07-13 11:38 | CM.NOTE ---
Rounds made with Dr. Mckeon, no discharge for today. Family requesting to discuss code status. Pt changed to DNRCC. 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
--- NOTE | 2023-07-13 11:45 | CM.NOTE ---
Inpatient Message From Medicare discussed with POA (daughter), she verbalize understanding and signs paper. Original given to pt and copy placed on pt's chart.
--- NOTE | 2023-07-13 11:53 | CM.NOTE ---
Important Message From Medicare discussed with pt, pt verbalizes understanding and signs paper. Original given to pt and copy placed on pt's chart.
--- NOTE | 2023-07-13 12:52 | DIETREC ---
Change diet to 1800 consistent carbohydrate mech soft diet
[2023-07-13 16:58] LABS: Glucometer 116 mg/dL (74-106)
--- NOTE | 2023-07-13 17:37 | PC.NURSE ---
Patient's family has been in the room. The patient was awake and wanted to order dinner. I ordered dinner for her. The family stated they would help the patient eat. The family called out while the patient was eating and said they think she aspirated. I went in to assess the patient. The patient's breathing was labored. Respirations were 24. Patient coughed a few times and stated she felt better. Lung sounds were clear throughout the L side. Lung sounds to the right were wheezy. Her spo2 was 90% on room air. I applied 2L of O2 to the patient and her spo2 came up to 96%. Notified physician of patient status.
--- NOTE | 2023-07-13 18:47 | XR_ITS ---
[facility] [place] [id number] Patient Name: ROB WILKINS MRN: [id number] date: 1935 Sex: F Assigned Patient Location: MS Current Patient Location: MS Accession/Order Number: [id number] Exam Date: 07/13/2023 18:40 Report Date: 07/13/2023 19:31 At the request of: SHAIKH BRENT Procedure: XR chest 1V EXAM: XR chest 1V HISTORY: ASPIRATION COMPARISON: 07/12/2013 TECHNIQUE: Frontal view of the chest. FINDINGS: Low lung volumes. There is left basilar atelectasis/consolidation possible small left pleural effusion. Mild bilateral interstitial prominence which may be secondary to vascular crowding or mild pulmonary vascular congestion. There is cardiomegaly. Left-sided pacemaker. Thoracic spine spondylosis. XR/XR chest 1V IMPRESSION: Low lung volumes. Left basilar atelectasis/consolidation and possible small left pleural effusion. Electronically authenticated by: SHARATH ROGERS Date: 07/13/2023 19:31
[2023-07-13] MEDS: ATORVASTATIN CALCIUM 40 MG TABLET PO (21:16)
[2023-07-13] MEDS: ACETAMINOPHEN 325 MG TABLET 650 MG PO (21:17)
[2023-07-13 21:22] LABS: Glucometer 130 mg/dL (74-106)
[2023-07-14] VITALS (8 sets, daily range): BP systolic 108–135; BP diastolic 72–83; PULSE 68–118; RESP 18–20; TEMP 36.4; O2SAT 91–95
[2023-07-14 04:43] LABS: Basophils Percent Auto 0.7 % (0.2-2.0); Eosinophils Absolute Auto 0.1 10^3/uL (0.0-0.7); Hematocrit 33.4 % (36.0-48.0); Hemoglobin 10.3 g/dL (12.0-16.0); Immature Granulocytes Abs Auto 0.03 10^3/uL (0.00-0.03); Immature Granulocytes Pct Auto 0.5 % (0.0-0.5); Lymphocytes Percent Auto 18.1 % (20.5-60.0); Mean Corpuscular HGB Conc 30.8 g/dL (29.9-35.2); Mean Corpuscular Hemoglobin 25.7 pg (26.7-34.0); Mean Corpuscular Volume 83.3 fL (81.0-99.0); Mean Platelet Volume 11.3 fL (9.5-13.5); Monocytes Absolute Auto 0.4 10^3/uL (0.3-0.8); Neutrophils Absolute Auto 3.9 10^3/uL (1.4-6.5); Neutrophils Percent Auto 70.7 % (43.0-75.0); Platelet Count 178 10^3/uL (150-450); Red Blood Count 4.01 10^6/uL (4.20-5.40); Red Cell Distribution Width 20.4 % (11.0-15.0); White Blood Count 5.5 10^3/uL (4.0-11.0)
[2023-07-14 04:55] LABS: Alanine Aminotransferase <6 U/L (14-59); Albumin Globulin Ratio 0.8; Albumin Level 2.8 g/dL (3.4-5.0); Alkaline Phosphatase 90 U/L (46-116); Anion Gap 13.8; Aspartate Amino Transferase 18 U/L (15-37); BUN Creatinine Ratio 36.7; Bilirubin Total 0.9 mg/dL (0.2-1.0); Calcium 8.7 mg/dL (8.5-10.1); Carbon Dioxide 30.3 mmol/L (21.0-32.0); Chloride 100 mmol/L (98-107); Estimated GFR (African America 41 (>=60); Estimated GFR (Non-African Ame 34 (>=60); Globulin 3.5 g/dL; Glucose 115 mg/dL (74-106); Potassium 4.1 mmol/L (3.5-5.1); Sodium 140 mmol/L (136-145); Total Protein 6.3 g/dL (6.4-8.2)
[2023-07-14 05:09] LABS: INR 4.35; Prothrombin Time 42.4 sec (9.0-11.6)
[2023-07-14] MEDS: MIDODRINE HCL 5 MG TABLET 10 MG PO (06:18)
[2023-07-14] MEDS: LEVOTHYROXINE SODIUM 25 MCG TABLET 50 MCG PO (06:19)
[2023-07-14] MEDS: FUROSEMIDE 40 MG/4 ML VIAL IVP (06:24)
--- NOTE | 2023-07-14 07:37 | CT_ITS ---
[address] [address] Patient Name: ROB WILKINS MRN: [id number] date: 1935 Sex: F Assigned Patient Location: MS Current Patient Location: MS Accession/Order Number: [id number] Exam Date: 07/14/2023 08:27 Report Date: 07/14/2023 09:41 At the request of: SHAIKH BRENT Procedure: CT chest wo con EXAMINATION: CT chest wo con HISTORY: Pneumonia COMPARISON: No relevant comparison available. TECHNIQUE: Multi-planar CT images were obtained without and/or with IV contrast as indicated by examination type. Axial, Coronal, and Sagittal images. Dose reduction techniques were achieved by using automated exposure control and/or adjustment of mA and/or kV according to patient size and/or use of iterative reconstruction technique. FINDINGS: LUNGS: Partial collapse versus consolidation of the left lower lobe basilar segments. PLEURA: Large pleural effusions approximately 3.5 cm in thickness bilaterally. VASCULATURE: No abnormality. RANGEL: No mass or adenopathy. MEDIASTINUM: No mass or adenopathy. CARDIAC: Prior aortic valve replacement. Atherosclerotic coronary artery disease, and prominent calcium deposition within the left ventricle. AORTA: No aneurysm or dissection. CHEST WALL: No mass or axillary adenopathy. BONES: Moderate anterior wedging of T6 vertebral body without increased trabecular density or endplate irregularity. LIMITED ABDOMEN: No suspicious findings Limited images of the upper abdomen. OTHER: Negative. CT/CT chest wo con IMPRESSION: 1. Large bilateral pleural effusions. 2. Partial collapse/consolidation of left lower lobe basilar segment; passed atelectasis versus pneumonia. 3. T6 moderate compression fracture; age indeterminant but suspected to be chronic. Electronically authenticated by: RONNY PEREZ Date: 07/14/2023 09:41
--- NOTE | 2023-07-14 09:50 | DIETREC ---
Recommend prostat at 30 ml bid po
[2023-07-14] MEDS: METOLAZONE 2.5 MG TABLET 5 MG PO (10:16)
[2023-07-14] MEDS: FUROSEMIDE 20 MG/2 ML VIAL 40 MG IVP (10:16)
[2023-07-14] MEDS: POTASSIUM CHLORIDE 10 MEQ ER TABLET 20 MEQ PO (10:17)
[2023-07-14] MEDS: OMEPRAZOLE 20 MG CAPSULE.DR PO (10:17)
[2023-07-14] MEDS: DIVALPROEX SODIUM 250 MG TABLET.DR PO (10:17)
--- NOTE | 2023-07-14 10:22 | SWNOTE1 ---
Updates sent to [facility].
--- NOTE | 2023-07-14 10:30 | P.IMPN_ITS ---
Progress Note: A&P Assessment and Plan (1) Acute respiratory failure with hypoxia: Assessment and Plan: Due to acute on chronic diastolic H and possibly aspiration PNA. On RA now Monitor and treat underlying etiology as specified below. (2) Acute on chronic diastolic (congestive) heart failure: Assessment and Plan: Poor UO on lasix. Increased Lasix to 80 q12 along with Metolazone Recent ECHO 04/21 - multiple valvular pathologies - including , AR, TR and MR. Will repeat to assess cardiac structure. If inadequate response to diuresis, will start on Bumex drip Fluid restriction to 1500/day CT chest shows b/l pleural effusion (3) Aspiration pneumonia: Assessment and Plan: CT Chest indicates possible left Lobe PNA Suspect aspiration PNA with her dementia and oropharyngeal dysphagia Speech evaluation - will change diet according to their recommendation Started on Clindamycin for PNA as she is PCN allergic. Qualifiers: Aspiration pneumonia type: due to gastric secretions Laterality: left Lung location: lower lobe of lung Qualified Code(s): J69.0 - Pneumonitis due to inhalation of food and vomit (4) SUE (acute kidney injury): Assessment and Plan: Likely cardiorenal. Increase Lasix to 80 q12 Monitor UO, cr closely. (5) Delirium: Assessment and Plan: Baseline dementia with fluctuating sensorium due to sundowning whenever she is in the hospital. Monitor closely. (6) Lactic acid acidosis: Assessment and Plan: Improved. (7) Afib: Assessment and Plan: On coumadin for AC. In NSR currently. 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 Confused at baseline with abnormal thought process, impaired judgement. Recognizes family members but has no sense of reality and confused at baseline C/w carbidopa/levodopa. (10) Dementia: Assessment and Plan: Severe dementia with loss of reality, impaired judgement, cognition. At baseline. 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 Hold coumadin (12) Severe tricuspid regurgitation: Assessment and Plan: Repeat ECHO. Volume overload currently. On IV diuresis. (13) Secondary pulmonary hypertension: Assessment and Plan: Due to sever TR, , MR and obesity. (14) S/P TAVR (transcatheter aortic valve replacement): Assessment and Plan: failing with AR and . Follows Cardiology as outpatient. Currrent goal of hospitalization is to address her volume overload and have her f/u with Cardiology as outpatient. (15) Hypothyroid: Assessment and Plan: C/w synthyroid (16) Ambulatory dysfunction: Assessment and Plan: Poor functional status, bed bound. Precautions for pressure ulcer. PT/OT eval Internal Medicine - PN: Subj Subjective Interval history: Seen and examined. Remains on RA but had an episode of aspiration last evening and patient felt SOB, with coughing that resolved and is now back on RA, with no evidence of resp distress. Inadequate UO on lasix 40 q12. Still quite volume overload on exam with +3 edema. Exam Constitutional Vital Signs, click to edit/add: Last Vital Signs Temp 97.6 F 07/14/23 04:18 Pulse 68 07/14/23 04:18 Resp 18 07/14/23 04:18 BP 126/78 07/14/23 04:18 Pulse Ox 91 L 07/14/23 05:26 O2 Del Method Room Air 07/14/23 05:26 O2 Flow Rate 2 07/13/23 06:00 Documenting provider has reviewed patient's vital signs: yes Common normals: no apparent distress General appearance: comfortable and grossly edematous Nutritional appearance: obese Orientation/consciousness: Yes confused HENMN Common normals: normocephalic and head/scalp atraumatic Head and scalp: normocephalic and atraumatic Eye Common normals: conjunctivae normal and no scleral icterus Conjunctiva: conjunctiva(e) normal Respiratory Common normals: normal respiratory effort and no use of accessory muscles Effort & inspection: able to speak in complete sentences Auscultation: crackles Laterality: bilateral and diminished lung sounds bilateral Cardio Common normals: regular rate Rate: regular rate Heart sounds: S1 normal, S2 normal and murmur (aortic region) systolic GI Common normals: Normal to inspection, nondistended, normoactive bowel sounds present, soft to palpation, non-tender and no hepatosplenomegaly Palpation: soft and no hepatosplenomegaly Other: abdominal wall edema Extremity General: edema (+3 LE and UE) Neuro Simone Coma Scale: document GCS findings Simone coma scale eye opening: Spontaneous Simone coma scale verbal response: Confused Simone coma scale motor response: Obey commands Simone coma scale total score: 14 Common normals: moves all extremities Sensorium/orientation: awake and alert Speech: speech normal Gait (neuro): unable to assess gait Psych Appearance: grossly normal Attitude: calm Speech: normal speech Thought process: confused Attention/concentration: attention grossly intact Memory/cognition: memory grossly impaired and cognition grossly impaired Insight: poor Judgement: poor Internal Medicine - PN: Obj Da Labs Labs: Laboratory Results - last 24 hr 07/13/23 07/13/23 07/13/23 11:03 16:56 21:20 WBC RBC Hgb Hct MCV MCH MCHC RDW Plt Count MPV Neut % (Auto) Lymph % (Auto) [place] % (Auto) Eos % (Auto) Baso % (Auto) Neut # (Auto) Lymph # (Auto) [place] # (Auto) Eos # (Auto) Baso # (Auto) Abs Immat Gran (auto) Imm/Tot Granulo (auto) PT INR Sodium Potassium Chloride Carbon Dioxide Anion Gap BUN Creatinine Est GFR ( Amer) Est GFR (Non-Af Amer) BUN/Creatinine Ratio Glucose Calcium Total Bilirubin AST ALT Alkaline Phosphatase Total Protein Albumin Globulin Albumin/Globulin Ratio POC Glucose 123 H 116 H 130 H 07/14/23 04:04 WBC 5.5 RBC 4.01 L Hgb 10.3 L Hct 33.4 L MCV 83.3 MCH 25.7 L MCHC 30.8 RDW 20.4 H Plt Count 178 MPV 11.3 Neut % (Auto) 70.7 Lymph % (Auto) 18.1 L Knox % (Auto) 8.0 Eos % (Auto) 2.0 Baso % (Auto) 0.7 Neut # (Auto) 3.9 Lymph # (Auto) 1.0 L Knox # (Auto) 0.4 Eos # (Auto) 0.1 Baso # (Auto) 0.0 Abs Immat Gran (auto) 0.03 Imm/Tot Granulo (auto) 0.5 PT 42.4 H* INR 4.35 H* Sodium 140 Potassium 4.1 Chloride 100 Carbon Dioxide 30.3 Anion Gap 13.8 BUN 54.0 H Creatinine 1.47 H Est GFR ( Amer) 41 L Est GFR (Non-Af Amer) 34 L BUN/Creatinine Ratio 36.7 Glucose 115 H Calcium 8.7 Total Bilirubin 0.9 AST 18 ALT <6 L Alkaline Phosphatase 90 Total Protein 6.3 L Albumin 2.8 L Globulin 3.5 Albumin/Globulin Ratio 0.8 POC Glucose Urinary Catheter Management Urinary Catheter Management Urethral: Cath placed during this visit: yes Urethral indwelling: Yes Reason for continuing: measure accurate output Insertion date: 07/12/23 Insertion time: 18:33
--- NOTE | 2023-07-14 10:40 | CM.NOTE ---
Rounds made with Dr. Mckeon, no discharge today. Continue diuretics and get echo.
[2023-07-14] MEDS: IPRATROPIUM/ALBUTEROL SULFATE 3 ML AMPUL.NEB IH (11:00)
--- NOTE | 2023-07-14 12:50 | DIETREC ---
Diet has been changed to Consistent carbohydrate 1800 kcal; 2 gram Na; [facility] soft diet texture; 1500 ml fluid restriction total ( fluid distribution: 240 ml (8oz q tray dietary; 780 ml nursing daily)
--- NOTE | 2023-07-14 12:53 | NUTR.NU ---
Bere had a choking episode on 07/13/23. HOUSING INSPECTOR evaluation revealed difficult initiation of dry swallow; slow oral transit; difficulty chewing; delayed swallow; moderate oropharngeal dysphagia . Dx acute resp failure with hypoxia; acute on chronic CHF with possibility of aspiration PNA Bere has extensive heart disease with AR TR MR CT showed B/L pleural effusion; L lobe PNA Diuretic adjusted per MD order Diet was changed see nutrition recommendation
--- NOTE | 2023-07-14 13:18 | CA_ITS ---
Patient: ROB WILKINS Exam Date: 07/14/2023 : 1935 Gender:F Ordering : Shaikh Kimi Mckeon . Admission #: [id number] Family : DR Tremaine Quiroz . Order #: [id number] CLICK HERE TO VIEW EXAM ECHOCARDIOGRAM REPORT PROCEDURE: CA ECHO DOPPLER COMPLETE INDICATIONS: SOB/CHF COMPARISON: None. DESCRIPTION: COMPLETE ECHOCARDIOGRAM Real-time transthoracic echocardiography with 2D, M-mode, spectral and color flow Doppler performed. QUALITY: Technical quality was good. LEFT VENTRICLE: Normal chamber size. Thickened posterior wall. Global left ventricular systolic function is normal. The septum is abnormal in motion, consistent with right ventricular volume/pressure overload. LV EF: Visual estimation of left ventricular ejection fraction is 60-65% DIASTOLIC: Not adequately assessed due to heart rhythm. ATRIAL SEPTUM: LEFT ATRIUM: Severe dilatation. RIGHT ATRIUM: Severe dilatation. Pacer wire present. RIGHT VENTRICLE: Severe dilatation. Mildly decreased right ventricular systolic function. TRICUSPID VALVE: Normal mobility and thickness. No stenosis with severe regurgitation. Severe pulmonary hypertension. RVSP 88 mmHg. MITRAL VALVE: Severely thickened with decreased mobility. Moderate mitral valve stenosis. Moderate mitral annular calcification. Moderate mitral regurgitation. MVA Planimerty is 1.4 cm2. Mean diastolic gradient is 5 mmHg at a heart rate of 67 bpm. AORTIC VALVE: Bio-Prosthetic valve appears well seated in the aortic position with normal doppler flow. There is mild to moderate perivalvular regurgitation seen in the posteriolateral aspect of the TAVR. NOY (VTI) 0.9 cm2, Vmax 2.38 m/s, Mean gradient 12.3 mmHg. AORTIC ROOT: Normal diameter and appearance. PULMONIC VALVE: Normal thickness and mobility. No stenosis. Mild regurgitation. PERICARDIUM: No evidence of pericardial effusion. IVC: Severe dilatation. Measuring 3.1 cm with no collapse and reversal of flow into the Hepatic veins. PLEURA: CONCLUSION: 1. Normal left ventricular size and systolic function. LVEF is 60-65%. 2. Severely dilated right ventricle with mildly reduced systolic function. 3. Severe biatrial dilatation. 4. Bioprosthetic (TAVR) valve in the aortic position is well seated with no significant transvalvular gradient and mild to moderate paravalvular regurgitation. 5. Severe tricuspid regurgitation. 6. Moderate mitral regurgitation and stenosis. 7. Severely elevated right sided pressures, RVSP is 88 mmHg. Adult Echocardiography Procedure Report Left Ventricle LVEDD (3.7 - 5.6 cm): 3.73 cm LVESD (2.2 - 4.0 cm): 2.61 cm LVIVS thickness (0.6 - 1.2 cm): 1.18 cm LVPW thickness (0.5 - 1.0 cm): 1.75 cm e': 0.08 m/s E - e': 15.19 LVOT Max Gradient: 2.74 mm[Hg] LVOT Area (cm2): 0.83 m/s Peak Velocity (LVOT): 0.83 m/s Mean Velocity (LVOT): 0.65 m/s LVOT Diameter 1.84 cm Left Ventricular Ejection Fraction: 74.34 % Left Atrium LA Volume Index (2D A2C): 82.47 ml/m2 Left Atrium Systolic Dimension: 4.81 cm Mitral Valve Mitral Valve E-Wave Peak Velocity: 1.26 m/s Right Ventricle RV Internal Diastolic Dimension: 4.42 cm Aorta AO Root Diam: 2.67 cm Ascending Ao Diam: 2.20 cm Aortic Valve AoV Area (Peak Mark): 0.96 cm2, 1.00 cm2, 0.92 cm2, 0.92 cm2 AoV Area (VTI): 0.84 cm2, 0.89 cm2 Deceleration [place]: 2.57 m/s2 Pressure Half-Time: 506.36 ms Peak Velocity(Antegrade Flow): 2.20 m/s, 2.38 m/s, 2.38 m/s Peak Gradient(Antegrade Flow): 19.38 mm[Hg], 22.73 mm[Hg], 22.59 mm[Hg] Mean Velocity(Antegrade Flow): 1.47 m/s, 1.65 m/s Mean Gradient(Antegrade Flow): 10.32 mm[Hg], 12.31 mm[Hg] Velocity Time Integral: 53.31 cm, 59.58 cm Tricuspid Valve Peak Velocity (Regurgitant Flow): 3.07 m/s, 3.96 m/s, 4.26 m/s Pulmonic Valve Mean Gradient: 2.18 mm[Hg], 2.00 mm[Hg] Mean Velocity: 0.70 m/s, 0.67 m/s Peak Velocity: 0.94 m/s, 0.94 m/s Peak Gradient: 3.83 mm[Hg], 3.24 mm[Hg], 3.53 mm[Hg] Right Atrium Right Atrium Systolic Pressure: 147.86 ml, 147.86 ml Dictated by: Sander Ospina M.D. on 07/14/2023 at 16:17 Approved by: Sander Ospina M.D. on 07/14/2023 at 16:42
[2023-07-14] MEDS: CLINDAMYCIN PHOSPHATE/D5W 600 MG/50 ML PIGGYBACK 100 MG IV ×2 (13:34→23:46)
[2023-07-14 16:41] LABS: Glucometer 137 mg/dL (74-106)
[2023-07-14 22:27] LABS: Glucometer 126 mg/dL (74-106)
[2023-07-14] MEDS: FUROSEMIDE 40 MG/4 ML VIAL 80 MG IVP (23:47)
--- NOTE | 2023-07-15 00:19 | PC.NURSE ---
making rounds at 1999 starting assessment on pt, found she had a BM, clean up pt, place tabbed brief under to help catch any future BM. after cleanup went to my other rooms. came back on next round around 2129 and to adminmeds, pts IV site was blown and get another IV started with help from ICU nurse due to pts bi-lat edema. pt was resting and not wanting to respond to my questions but would tell me no when i asked her to take her PO meds. she refused to talk to me anymore. after admin of lasix and starting the IV ABX at new site i left the room and she was resting with her eyes closed. After going t next room and providing care, I checked back approximately 15 minutes later to check IV site and pt again. Pt had pulled out IV and bled on her blanket and gown, stop IV, change gown. Pt still refuses to speak with me but will answer about taking her meds with a No. she is also calling out for poeple that are not here, reorient pt, but she does not believe me and after short time will call out again.
[2023-07-15 04:57] LABS: Basophils Percent Auto 0.8 % (0.2-2.0); Eosinophils Absolute Auto 0.1 10^3/uL (0.0-0.7); Eosinophils Percent Auto 1.4 % (0.9-7.0); Hematocrit 33.5 % (36.0-48.0); Hemoglobin 10.3 g/dL (12.0-16.0); Immature Granulocytes Abs Auto 0.02 10^3/uL (0.00-0.03); Immature Granulocytes Pct Auto 0.4 % (0.0-0.5); Lymphocytes Absolute Auto 0.7 10^3/uL (1.2-3.8); Mean Corpuscular HGB Conc 30.7 g/dL (29.9-35.2); Mean Corpuscular Hemoglobin 25.7 pg (26.7-34.0); Mean Corpuscular Volume 83.5 fL (81.0-99.0); Mean Platelet Volume 10.8 fL (9.5-13.5); Monocytes Absolute Auto 0.5 10^3/uL (0.3-0.8); Neutrophils Absolute Auto 3.8 10^3/uL (1.4-6.5); Neutrophils Percent Auto 75.4 % (43.0-75.0); Platelet Count 186 10^3/uL (150-450); Red Blood Count 4.01 10^6/uL (4.20-5.40); Red Cell Distribution Width 20.3 % (11.0-15.0)
[2023-07-15] MEDS: CLINDAMYCIN PHOSPHATE/D5W 600 MG/50 ML PIGGYBACK 100 MG IV (05:07)
[2023-07-15 05:19] LABS: Alanine Aminotransferase 8 U/L (14-59); Albumin Globulin Ratio 0.8; Albumin Level 2.9 g/dL (3.4-5.0); Alkaline Phosphatase 94 U/L (46-116); Anion Gap 12.2; Aspartate Amino Transferase 18 U/L (15-37); BUN Creatinine Ratio 35.6; Bilirubin Total 0.9 mg/dL (0.2-1.0); Calcium 8.8 mg/dL (8.5-10.1); Carbon Dioxide 31.6 mmol/L (21.0-32.0); Chloride 99 mmol/L (98-107); Estimated GFR (African America 40 (>=60); Estimated GFR (Non-African Ame 33 (>=60); Globulin 3.6 g/dL; Glucose 123 mg/dL (74-106); Potassium 3.8 mmol/L (3.5-5.1); Sodium 139 mmol/L (136-145); Total Protein 6.5 g/dL (6.4-8.2)
[2023-07-15 05:22] LABS: INR 4.76; Prothrombin Time 46.2 sec (9.0-11.6)
[2023-07-15 05:50] VITALS: O2SAT 91
--- NOTE | 2023-07-15 06:56 | XR_ITS ---
The [address] [address] Patient Name: ROB WILKINS MRN: [id number] date: 1935 Sex: F Assigned Patient Location: MS Current Patient Location: MS Accession/Order Number: [id number] Exam Date: 07/15/2023 08:35 Report Date: 07/15/2023 08:49 At the request of: SHAIKH BRENT Procedure: XR chest 1V EXAMINATION: XR chest 1V HISTORY: per physician order COMPARISON: XR chest 07/13/2023 FINDINGS: LUNGS: Underexpanded lungs with patchy and confluent opacities within lung bases partially obscuring the diaphragm margins. VASCULATURE: No increased pulmonary vasculature. PLEURA: No pneumothorax, effusion, or pleural thickening. CARDIAC: Suspect cardiomegaly. Stable cardiac pacer. MEDIASTINUM: No visible mass or adenopathy. BONES: No fracture or visible bone lesion. OTHER: Negative. XR/XR chest 1V IMPRESSION: 1. Low lung volume examination with increased moderate bibasilar infiltrates versus atelectasis. A small left pleural effusion cannot be excluded. Electronically authenticated by: RONNY PEREZ Date: 07/15/2023 08:49
[2023-07-15 07:38] VITALS: O2SAT 92
[2023-07-15 08:00] VITALS: RESP 12
--- NOTE | 2023-07-15 08:20 | PC.NURSE ---
Daughter, POA at bedside. Requested medications not be administered d/t patient being confused. Patient is restless grabbing at pillows and blankets, reaching, and calling out Please, Please, Please repeatedly .
[2023-07-15] MEDS: FUROSEMIDE 40 MG/4 ML VIAL 80 MG IVP (08:36)
--- NOTE | 2023-07-15 09:28 | SWNOTE1 ---
SW received call from nursing and family may be interested in hospice. Doctor is gelacio churchill, LEA to talk with family after doctor is in.
--- NOTE | 2023-07-15 10:23 | SWNOTE1 ---
SW received message from case management and family would like to move forward with [facility]. Referral sent to [facility].
--- NOTE | 2023-07-15 10:50 | CM.NOTE ---
Rounds made with Dr. Mckeon, family asking about Hospice care. Dr. Mckeon discussed multiple options with family, they wish to keep pt comfortable. Family request [facility]. Reached out to to contact Milad.
--- NOTE | 2023-07-15 10:52 | PM.IMPN1 ---
Progress Note: A&P Assessment and Plan (1) Acute respiratory failure with hypoxia: Assessment and Plan: Due to acute on chronic diastolic HF and aspiration PNA. On RA now (2) Acute on chronic diastolic (congestive) heart failure: Assessment and Plan: Generalized anasarca, no improvement with IV lasix 80 q12. ECHO 04/21 - multiple valvular pathologies - including , AR, TR and MR. Her sig valvular pathology likely making it difficult to successfully diurese her. ill repeat to assess cardiac structure. Repeat ECHO pending. CXR b/l infiltrates/edema - no improvement. D/w patients daughter and (both has POA) and they both asked for hospice consult and requested to avoid IV sticks and blood draws. IV lasxi switched to PO bumex 2q12 (3) Aspiration pneumonia: Assessment and Plan: CT Chest indicates possible left Lobe PNA CXR shows b/l infiltrates. likely aspiration PNA with her dementia and oropharyngeal dysphagia IV clindamycin changed to PO as per family's request. Qualifiers: Aspiration pneumonia type: due to gastric secretions Laterality: left Lung location: lower lobe of lung Qualified Code(s): J69.0 - Pneumonitis due to inhalation of food and vomit (4) SUE (acute kidney injury): Assessment and Plan: Likely cardiorenal. No more blood draws as per family to keep patient comfortable. (5) Delirium: Assessment and Plan: Baseline dementia with fluctuating sensorium due to sundowning whenever she is in the hospital. (6) Lactic acid acidosis: Assessment and Plan: Improved. (7) Afib: Assessment and Plan: On coumadin for AC. In NSR currently. (8) Type 2 diabetes mellitus: Assessment and Plan: D/c SQ insulin to keep patient comfortable. Hospice consulted. Qualifiers: Diabetes mellitus shelter insulin use: without extermination inspector use Diabetes mellitus complication status: without complication Qualified Code(s): E11.9 - Type 2 diabetes mellitus without complications (9) Parkinson disease: Assessment and Plan: Parkinson with dementia. Confused at baseline with abnormal thought process, impaired judgement. C/w carbidopa/levodopa. (10) Dementia: Assessment and Plan: Severe dementia with loss of reality, impaired judgement, cognition. At baseline. 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 Hold coumadin (12) Severe tricuspid regurgitation: Assessment and Plan: Repeat ECHO report pending. (13) Secondary pulmonary hypertension: Assessment and Plan: Due to sever TR, , MR and obesity. (14) S/P TAVR (transcatheter aortic valve replacement): Assessment and Plan: failing with AR and . Follows Cardiology as outpatient. Goals of care d/w family - goal is to keep her comfortable (15) Hypothyroid: Assessment and Plan: C/w synthyroid (16) Ambulatory dysfunction: Assessment and Plan: Poor functional status, bed bound. Precautions for pressure ulcer. PT/OT eval (17) Advanced care planning/counseling discussion: Assessment and Plan: Meeting with family for advanced care planning and discussion. I spent over 20 minutes separately with family face and patient face to face just for that person I informed them of her clinical status, comorbidities, educated and counseled them on palliative and hospice care. I attempted to answer all their questions and address their concerns. Daughter and (both has POA) decided to go forward with hospice consult. After thorough discussion, they both asked to refrain from attempting IV access or blood draws. Lasix changed to PO bumex, IV clindamycin changed to PO clindamycin. I met them twice specifically for advanced care planning today. Internal Medicine - PN: Subj Subjective Interval history: Seen and examined. Pulled IV line out and needed multiple attempts by different RNs to establish IV access. Edematous, with generalized anasarca. Confused. No sig improvement in clinical status. Exam Constitutional Vital Signs, click to edit/add: Last Vital Signs Temp 97.5 F L 07/14/23 22:00 Pulse 72 07/14/23 22:00 Resp 12 07/15/23 08:00 BP 108/72 07/14/23 23:47 Pulse Ox 92 L 07/15/23 07:38 O2 Del Method Room Air 07/15/23 07:38 O2 Flow Rate 2 07/13/23 06:00 Documenting provider has reviewed patient's vital signs: yes Common normals: no apparent distress General appearance: comfortable and grossly edematous Nutritional appearance: obese Orientation/consciousness: Yes confused HENMT Common normals: normocephalic and head/scalp atraumatic Head and scalp: normocephalic and atraumatic Eye Common normals: conjunctivae normal and no scleral icterus Conjunctiva: conjunctiva(e) normal Respiratory Common normals: normal respiratory effort and no use of accessory muscles Effort & inspection: able to speak in complete sentences Auscultation: crackles Laterality: bilateral and diminished lung sounds bilateral Cardio Common normals: regular rate Rate: regular rate Heart sounds: S1 normal, S2 normal and murmur (aortic region) systolic GI Common normals: Normal to inspection, nondistended, normoactive bowel sounds present, soft to palpation, non-tender and no hepatosplenomegaly Palpation: soft and no hepatosplenomegaly Other: abdominal wall edema Extremity General: edema (+3 LE and UE) Neuro Common normals: moves all extremities Sensorium/orientation: awake and alert Speech: speech normal Gait (neuro): unable to assess gait Psych Appearance: grossly normal Attitude: calm Speech: normal speech Thought process: confused Attention/concentration: attention grossly intact Memory/cognition: memory grossly impaired and cognition grossly impaired Insight: poor Judgement: poor Internal Medicine - PN: Obj Da Labs Labs: Laboratory Results - last 24 hr 07/14/23 07/14/23 07/15/23 16:39 22:23 04:35 WBC 5.0 RBC 4.01 L Hgb 10.3 L Hct 33.5 L MCV 83.5 MCH 25.7 L MCHC 30.7 RDW 20.3 H Plt Count 186 MPV 10.8 Neut % (Auto) 75.4 H Lymph % (Auto) 13.0 L Mayes % (Auto) 9.0 Eos % (Auto) 1.4 Baso % (Auto) 0.8 Neut # (Auto) 3.8 Lymph # (Auto) 0.7 L [place]es # (Auto) 0.5 Eos # (Auto) 0.1 Baso # (Auto) 0.0 Abs Immat Gran (auto) 0.02 Imm/Tot Granulo (auto) 0.4 PT 46.2 H* INR 4.76 H* Sodium 139 Potassium 3.8 Chloride 99 Carbon Dioxide 31.6 Anion Gap 12.2 BUN 53.0 H Creatinine 1.49 H Est GFR ( Amer) 40 L Est GFR (Non-Af Amer) 33 L BUN/Creatinine Ratio 35.6 Glucose 123 H Calcium 8.8 Total Bilirubin 0.9 AST 18 ALT 8 L Alkaline Phosphatase 94 Total Protein 6.5 Albumin 2.9 L Globulin 3.6 Albumin/Globulin Ratio 0.8 POC Glucose 137 H 126 H Urinary Catheter Management Urinary Catheter Management Urethral: Cath placed during this visit: yes Urethral indwelling: Yes Reason for continuing: decision to DC catheter Insertion date: 07/12/23 Insertion time: 18:33
[2023-07-15 11:18] LABS: Glucometer 114 mg/dL (74-106)
--- NOTE | 2023-07-15 11:35 | NUTR.NU ---
Referral to [facility]
--- NOTE | 2023-07-15 11:55 | SWNOTE1 ---
LEA spoke with sun in room, she is waiting for call back from [facility] to see what time they are coming.
--- NOTE | 2023-07-15 12:57 | SWNOTE1 ---
LEA spoke with Komal at [facility] and [facility] will be here at 1:30 to meet with family. LEA let nursing know.
--- NOTE | 2023-07-15 14:14 | SWNOTE1 ---
LEA spoke with lady from [facility]. She let me know that family has voiced they are not happy with [facility] and want pt to go to [facility] in [place]. They want to sign on, but do not want her to go back to [facility]. SW to reach out to Lennie at [facility] to see if they take medicaid and have parts counterman bed available. LEA spoke with family and the son voiced he spoke with Lennie about 2 weeks ago or so and that [facility] has some of her information as well. [facility] and being discharged tomorrow. SW to see what Ryan says, message left for Lennie and email sent to Lennie.
[2023-07-15] MEDS: CLINDAMYCIN HCL 150 MG CAPSULE 600 MG PO (14:29)
[2023-07-15] MEDS: MIDODRINE HCL 5 MG TABLET 10 MG PO (14:30)
--- NOTE | 2023-07-15 15:09 | SWNOTE1 ---
LEA spoke with Lennie at [facility] and she is familiar with pt and they will review and let SW know. Likely for discharge tomorrow with Hospice to [facility]. LEA spoke with Hospice nurse and she is setting up transport for tomorrow late morning. SW updated nursing and doctor.
[2023-07-15 19:47] VITALS: O2SAT 95
[2023-07-15 20:00] VITALS: RESP 18
[2023-07-15] MEDS: ALPRAZOLAM 0.5 MG TABLET PO (20:17)
[2023-07-15 22:00] VITALS: BP 104/62; PULSE 69; RESP 18; TEMP 36.4; O2SAT 93
[2023-07-16 04:34] VITALS: O2SAT 94
[2023-07-16 06:00] VITALS: BP 106/66; PULSE 65; RESP 20; TEMP 36; O2SAT 94
[2023-07-16] MEDS: LEVOTHYROXINE SODIUM 25 MCG TABLET 50 MCG PO (06:52)
[2023-07-16] MEDS: MIDODRINE HCL 5 MG TABLET 10 MG PO (06:53)
[2023-07-16 08:16] VITALS: O2SAT 95
[2023-07-16] MEDS: DIVALPROEX SODIUM 250 MG TABLET.DR PO (08:41)
[2023-07-16] MEDS: METOLAZONE 2.5 MG TABLET 5 MG PO (08:41)
[2023-07-16] MEDS: BUMETANIDE 1 MG TABLET 2 MG PO (08:41)
[2023-07-16] MEDS: OMEPRAZOLE 20 MG CAPSULE.DR PO (08:41)
[2023-07-16] MEDS: POTASSIUM CHLORIDE 10 MEQ ER TABLET 20 MEQ PO (08:41)
[2023-07-16] MEDS: CLINDAMYCIN HCL 150 MG CAPSULE 600 MG PO (08:43)
--- NOTE | 2023-07-16 09:13 | SWNOTE1 ---
LEA received message from Lennie at [facility] and they are able to accept. LEA updated case management who is with doctor. Transport is set up for 2:15 today, [facility] set it up. LEA updated packet and let [facility] know.
--- NOTE | 2023-07-16 11:08 | P.DS_ITS ---
DS: Providers Provider Date of admission: 07/12/23 21:43 Primary care physician: ALBINA CLARK Consults: 07/13/23 09:01 Occupational Therapy Eval and Treat Routine Physical Therapy Eval and Treat Routine 07/13/23 17:51 Speech Therapy Eval and Treat Routine 07/15/23 10:50 Consult to Hospice Routine Attending physician on discharge: Shaikh Linda Discharging clinician: Shaikh Linda Anticipated date of discharge: 07/16/23 DS: Diagnosis Discharge Diagnosis (1) Acute respiratory failure with hypoxia: Assessment and plan: on RA now. (2) Acute on chronic diastolic (congestive) heart failure: Assessment and plan: Persistent volume overload, generalized anasarca. Not in any distress though. Patient now enrolled in hospice - will d/c on oral bumex. (3) Aspiration pneumonia: Assessment and plan: Will d/c on Oral clindamycin Qualifiers: Aspiration pneumonia type: due to gastric secretions Laterality: left Lung location: lower lobe of lung Qualified Code(s): J69.0 - Pneumonitis due to inhalation of food and vomit (4) SUE (acute kidney injury): Assessment and plan: cardio renal. Good UO. (5) Delirium: Assessment and plan: Fluctuating sensorium. Baseline dementia with parkinson (6) Lactic acid acidosis: (7) Afib: Assessment and plan: On Coumadin for AC. INR was above goal in hospital so did not receive coumadin. Will d/c as she is now hospice. (8) Type 2 diabetes mellitus: Assessment and plan: C/w metformin as outpatient Qualifiers: Diabetes mellitus prison insulin use: without termite control service representative use Diabetes mellitus complication status: without complication Qualified Code(s): E11.9 - Type 2 diabetes mellitus without complications (9) Parkinson disease: Assessment and plan: On carbidopa/levadopa (10) Dementia: Assessment and plan: Severe dementia with periods of agitation/confusion. Now enrolled in hospice. 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 (12) Severe tricuspid regurgitation: Assessment and plan: Hospice patient. Volume control with diuretics to keep her comfortable (13) Secondary pulmonary hypertension: (14) S/P TAVR (transcatheter aortic valve replacement): Assessment and plan: Hospice patient. Volume control with diuretics to keep her comfortable (15) Hypothyroid: Assessment and plan: C/w synthyroid (16) Ambulatory dysfunction: Assessment and plan: Bed bound. Keep comfortable. Standard precautions to prevent pressure ulcer. (17) Advanced care planning/counseling discussion: DS: Summary Hospital Course Hospital Course: 88 y o female, presented with SOB, worsening LE edema and change in mental status. She was initially hypoxic on presentation but remained on RA from day 2 of hospital stay. Patient was initially treated for acute on chronic diasotlic HF but then further w/u indicated presence of aspiration PNA for which she was started on IV Clindamycin. Patient's mental status waxes and wanes throughout the hospital stay. We were unable to adequately diurese her with ever increasing doses of IV diuretics and patient continued to have sig volume overload and worsening anasarca due to it. Patient's daughter and then decided to pursue hospice care given her age, multiple comorbidities and recurrent hospital admissions in view of patient's previous expressed desires. Hospice consulted. [facility]. She will complete course of her oral abx - 5 more days. Status at Discharge Functional status at discharge: bed bound Overall status at discharge: patient is not back to baseline Time Spent with Patient Time attestation: Total time spent providing and/or coordinating discharge services: Time spent: greater than 30 minutes Exam Constitutional Vital Signs, click to edit/add: Last Vital Signs Temp 96.8 F L 07/16/23 06:00 Pulse 65 07/16/23 06:00 Resp 20 07/16/23 06:00 BP 106/66 07/16/23 06:00 Pulse Ox 95 07/16/23 08:16 O2 Del Method Room Air 07/16/23 08:16 O2 Flow Rate 1 07/16/23 06:00 Documenting provider has reviewed patient's vital signs: yes Common normals: no apparent distress General appearance: comfortable and grossly edematous Nutritional appearance: obese Orientation/consciousness: Yes confused HENMT Common normals: normocephalic and head/scalp atraumatic Head and scalp: normocephalic and atraumatic Eye Common normals: conjunctivae normal and no scleral icterus Conjunctiva: conjunctiva(e) normal Respiratory Common normals: normal respiratory effort and no use of accessory muscles Effort & inspection: able to speak in complete sentences Auscultation: crackles Laterality: bilateral and diminished lung sounds bilateral Cardio Common normals: regular rate Rate: regular rate Heart sounds: S1 normal, S2 normal and murmur (aortic region) systolic GI Common normals: Normal to inspection, nondistended, normoactive bowel sounds present, soft to palpation, non-tender and no hepatosplenomegaly Palpation: soft and no hepatosplenomegaly Other: abdominal wall edema Extremity General: edema (+3 LE and UE) Neuro Common normals: moves all extremities Sensorium/orientation: awake and alert Speech: speech normal Gait (neuro): unable to assess gait Psych Appearance: grossly normal Attitude: calm Speech: normal speech Thought process: confused Attention/concentration: attention grossly intact Memory/cognition: memory grossly impaired and cognition grossly impaired Insight: poor Judgement: poor DS: Data Data Completed and Pending Labs on day of discharge: Labs from last 24 hours 07/15/23 11:08 POC Glucose 114 H Preliminary micro results at discharge 07/12/23 18:45 Blood Culture Result 1 - Preliminary Blood NO GROWTH AT 36-48 HOURS. FINAL TO FOLLOW. 07/12/23 18:10 Blood Culture Result 1 - Preliminary Blood NO GROWTH AT 36-48 HOURS. FINAL TO FOLLOW. Discharge Plan Discharge Disposition: er [facility] Discharge Medications: New clindamycin HCl 300 mg capsule 300 mg PO Q8H 7 Days Qty: 21 0RF bumetanide 2 mg tablet 2 mg PO BID Qty: 60 0RF Continued quetiapine 25 mg tablet 25 mg PO BEDTIME latanoprost 0.005 % drops 1 drp OPHTHALMIC (EYE) BEDTIME Rx Instructions: BOTH EYES atorvastatin 40 mg tablet 40 mg PO BEDTIME metformin 500 mg tablet 500 mg PO BID albuterol sulfate 2.5 mg /3 mL (0.083 %) solution for nebulization 2.5 mg inhalation Q8H PRN (Reason: shortness of breath or wheezing) divalproex 250 mg tablet,delayed release (DR/EC) 250 mg PO Q12H metolazone 5 mg tablet 5 mg PO DAILY Rx Instructions: give 1/2 hour before lasix potassium chloride 20 mEq/15 mL liquid 20 meq PO DAILY levothyroxine 50 mcg tablet 50 mcg PO DAILY warfarin 2 mg tablet 2 mg PO DAILY carbidopa-levodopa 10-100 mg tablet 1 tab PO TID omeprazole 20 mg capsule,delayed release(DR/EC) 20 mg PO DAILY midodrine 10 mg tablet 10 mg PO TID acetaminophen 325 mg capsule 650 mg PO Q6H PRN (Reason: fever or pain) albuterol sulfate 90 mcg/actuation HFA aerosol inhaler 1 inh INHALATION Q4H PRN (Reason: shortness of breath or wheezing) magnesium hydroxide [Milk of Magnesia] 400 mg/5 mL suspension 30 ml PO DAILY PRN (Reason: constipation) nystatin 100,000 unit/gram cream 1 applic TOPICAL .Q12 sodium chloride 1,000 mg tablet,soluble 2,000 mg PO .Q6 PRN (Reason: electrolyte replenishment) Discontinued furosemide 40 mg tablet 40 mg PO Q12H Operations Manager Assistant/Gas Check Pad Maker Instructions: Discharge to [facility] termite control service representative with [facility] services. Forms: Portal Instructions
--- NOTE | 2023-07-16 11:15 | CM.NOTE ---
Rounds made with lyly Brown to discharge pt to [facility] today.
[2023-07-16] MEDS: ALPRAZOLAM 0.5 MG TABLET PO (11:57)
== END 2023-07-16 13:55 | DRG 291 ==
LOC: ER 19:41 → MS 21:49
PROVIDERS: Family Medicine; Admitting Provider Internal Medicine; Emergency Provider Emergency Medicine; PCP Family Medicine; Visit Provider Internal Medicine
DX: I50.33 Acute on chronic diastolic (congestive) heart failure (principal); J69.0 Pneumonitis due to inhalation of food and vomit; J96.01 Acute respiratory failure with hypoxia; E87.20 Acidosis, unspecified; N17.9 Acute kidney failure, unspecified; F02.C2 Dementia in other diseases classified elsewhere, severe, with psychotic disturbance; E11.9 Type 2 diabetes mellitus without complications; G20 Parkinson's disease; E03.9 Hypothyroidism, unspecified; I48.91 Unspecified atrial fibrillation; I07.1 Rheumatic tricuspid insufficiency; I27.20 Pulmonary hypertension, unspecified; Z95.2 Presence of prosthetic heart valve; R13.12 Dysphagia, oropharyngeal phase; I35.0 Nonrheumatic aortic (valve) stenosis; Z74.01 Bed confinement status; Z79.01 Long term (current) use of anticoagulants; Z79.899 Other long term (current) drug therapy; Z79.84 Long term (current) use of oral hypoglycemic drugs; Z79.890 Hormone replacement therapy; Z95.0 Presence of cardiac pacemaker
CPT/HCPCS: 36415; 36600; 51702; 71045; 71250; 80048; 80053; 82805; 82948; 83605; 83880; 84100; 84484; 85025; 85610; 85730; 87040; 92610; 93005; 93306; 94640; 94761; 96365; 96366; 96375; 96376; 97165; 99285; Q3014